=== PATIENT | female | born 1990 | race Caucasian/White ===

== ENCOUNTER 2023-06-15 21:45 | Emergency (ER) | payer MEDICAID ==
[~2023-06-15] VITALS: Ht 162.6 cm; Wt 59.0 kg
[2023-06-15 22:00] VITALS: BP 149/114; PULSE 120; RESP 18; TEMP 98.1; O2SAT 99
== END 2023-06-15 23:22 | disposition home or self-care (01) ==
LOC: ER 21:45
DX: F10.229 Alcohol dependence with intoxication, unspecified (principal); Y90.9 Presence of alcohol in blood, level not specified
CPT/HCPCS: 99283